=== PATIENT | male | born 1945 | race Caucasian/White ===

== ENCOUNTER 2023-03-02 09:26 | Day surgery (SDC) | payer MEDICARE ==
[~2023-03-02] VITALS: Ht 177.8 cm; Wt 92.1 kg
[~2023-03-02 09:26] MED LIST: BUSP10TA11 PO; CYCL5TAB11 PO; ESCI20TA29 PO; GEMF600T PO; LANS30CA37 PO; LANTUS SQ; LIDO700A TP; MEMA5TAB PO; METF500T PO; ONDA8TAB9 PO; ZET10T PO
[2023-03-02 10:06] VITALS: BP 128/72; PULSE 72; RESP 15; TEMP 98.2; O2SAT 95
[2023-03-02] MEDS ORDERED: INSU100I8 SQ (10:17)
[2023-03-02] MEDS ORDERED: FINA5TAB11 PO (10:18)
[2023-03-02] MEDS ORDERED: LEVO50TA8 PO (10:18)
[2023-03-02] MEDS ORDERED: DULO60CA65 PO (10:18)
[2023-03-02] MEDS ORDERED: FLO0.4C (10:18)
[2023-03-02] MEDS ORDERED: DULA1.5P SQ (10:18)
[2023-03-02] MEDS ORDERED: PROP120C2 PO (10:18)
[2023-03-02 11:22] VITALS: BP 126/66; PULSE 72; RESP 16; O2SAT 95
[2023-03-02 11:40] VITALS: BP 129/68; PULSE 74; RESP 16; O2SAT 95
[2023-03-02 11:55] VITALS: BP 127/64; PULSE 74; RESP 16; O2SAT 95
[2023-03-02 12:10] VITALS: BP 138/93; PULSE 73; RESP 16; O2SAT 95
[2023-03-02 12:40] VITALS: BP 112/90; PULSE 70; RESP 16; O2SAT 95
[2023-03-02 12:56] LABS: GLUCOSE,CSF 84 MG/DL (40-75)
[2023-03-02 14:11] LABS: APPEARANCE,CSF CLOUDY
[2023-03-02 14:15] LABS: CSF RBC 7800 /CU MM (0); CSF VOLUME 10 ML; CSF WBC CT 3 /CU MM (0-5); TUBE# COUNTED 3
[2023-03-02 14:18] LABS: CSF SUPERNATANT COLOR COLORLESS
== END 2023-03-02 13:00 | disposition home or self-care (01) ==
LOC: SSTAY O 09:26
PROVIDERS: ATTEND Nurse Practitioner Family
DX: G43.719 Chronic migraine without aura, intractable, without status migrainosus (principal); E11.9 Type 2 diabetes mellitus without complications; E03.9 Hypothyroidism, unspecified; I10 Essential (primary) hypertension; N40.0 Benign prostatic hyperplasia without lower urinary tract symptoms; Z88.8 Allergy status to other drugs, medicaments and biological substances; Z88.5 Allergy status to narcotic agent; Z79.899 Other long term (current) drug therapy; Z79.4 Long term (current) use of insulin
CPT/HCPCS: 36415; 62328; 82164; 82945; 86592; 87015; 87070; 89051; A4620